=== PATIENT | female | born 1965 | race Caucasian/White ===

== ENCOUNTER 2016-09-04 21:07 | Emergency (ER) | payer MEDICAID | END 2016-09-04 21:45 | disposition left against medical advice (07) | LOC: CED 21:07 | DX: N93.9 Abnormal uterine and vaginal bleeding, unspecified (principal); Z53.8 Procedure and treatment not carried out for other reasons ==

== ENCOUNTER 2016-12-30 12:42 | Emergency (ER) | payer MEDICAID ==
[2016-12-30 12:53] VITALS: BP 120/75; PULSE 76; RESP 16; TEMP 99; O2SAT 94
--- NOTE | 2016-12-30 13:04 | EDPHY ---
H & P Stated Complaint: R upper eyelid redness and swelling intermittent x 6 weeks. Time Seen by Provider: 12/30/16 12:57 HPI/ROS: CHIEF COMPLAINT: Right eye swelling and pain. HISTORY OF PRESENT ILLNESS: The patient is a 51-year-old female presenting with right eye pain and swelling for the past 2 days with associated eye discharge today. The patient developed a stye to the upper right lid 4-6 weeks ago. The eye has since been intermittently swollen. Over the past 2 days the eye has remained swollen around the upper right lid. She denies recent sickness. No ear pain or sore throat. The patient wears contacts normally, she has not put her right lens. No change in vision. No eye pain, but some discomfort in the eyelid itself on the right. No foreign body sensation. No eye trauma. REVIEW OF SYSTEMS: A 10 point review of systems was performed and is negative with the exception of the elements mentioned in the history of present illness. Source: Patient Exam Limitations: No limitations - Personal History LMP (Females 10-55): 15-21 Days Ago Current Tetanus Diphtheria and Acellular Pertussis (TDAP): Yes Tetanus Vaccine Date: within 10 years - Medical/Surgical History Hx Asthma: No Hx Chronic Respiratory Disease: No Hx Diabetes: No Hx Cardiac Disease: No Hx Renal Disease: No Hx Cirrhosis: No Hx Alcoholism: No Hx HIV/AIDS: No Hx Splenectomy or Spleen Trauma: No Other PMH: parathyroidectomy, tubal ligation, pelvic floor surgery, dysbiosis - Social History Smoking Status: Never smoked Additional Social History: Daughter at bedside. 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 - Physical Exam Exam: General Appearance: Alert, no acute distress. Eyes: Pupils: equal round and reactive to light. EOMI. Lids: Erythema and edema to the right upper lid that extends to lateral canthus and medial canthus. Small palpable stye right upper mid lid. Skin: no proptosis, no periorbital erythema or swelling, no vesicles Conjunctivae: not injected, no discharge. ENT, Mouth: Mucous membranes are moist, no oropharyngeal erythema or edema. No mastoid tenderness, swelling or redness on right. Normal EACs and TMs bilaterally. Neck: No lymphadenopathy, supple. Respiratory: Lungs are clear to auscultation. Cardiovascular: Regular rate and rhythm. Skin: Warm and dry, no rashes, normal color. Neurological: Alert and oriented. Moving all four extremities easily and equally. Psychiatric: Normal affect. Constitutional: Initial Vital Signs Temperature (C) 37.2 C 12/30/16 12:47 Heart Rate 76 12/30/16 12:47 Respiratory Rate 16 12/30/16 12:47 Blood Pressure 120/75 12/30/16 12:47 O2 Sat (%) 94 12/30/16 12:47 O2 Delivery Mode Room Air Allergies/Adverse Reactions: hydromorphone HCl [From Dilaudid] Allergy (Severe, Verified 12/30/16 12:52) Itching morphine [Morphine] Allergy (Severe, Verified 12/30/16 12:52) Itching Home Medications: Medication Instructions Recorded NO HOME MEDS 12/15/09 Medical Decision Making ED Course/Re-evaluation: The patient presents with swelling and erythema to the right upper lid. On exam she has erythema and edema to the right upper lid that extends to lateral canthus and medial canthus, small palpable stye. This could possibly be a chalazion. I do not suspect conjunctivitis as the eye does not appear injected. Persistent blepharitis also a possiblility but this seems more localized and there is no crusting or conjunctival injection. No eye pain with EOMs. No photophobia. I do not suspect septal or preseptal cellulitis. She is not wearing make up on a regular basis, no new products that she might have applied around her eyes--I doubt contact dermatitis. I recommend ophthalmologic followup, which she agrees to arrange. Departure - Departure Disposition: Home, Routine, Self-Care Clinical Impression: Stye Qualifiers: Laterality: right Eyelid: upper Qualified Code(s): H00.011 - Hordeolum externum right upper eyelid Condition: Good Instructions: Stye (ED) Additional Instructions: Please schedule an appointment wiht your eye doctor. A persistent stye might need to be removed by your eye doctor. Referrals: Diana Alfaro MD [Primary Care Provider] - As per Instructions Report Scribed for: Yeimi Flannery Report Scribed by: Katherine Elmore Date of Report: 12/30/16 Time of Report: 13:01 Physician Review and Approval Statement: 12/30/16 13:02 Portions of this note were transcribed by the medical director. I, Dr. Yeimi Flannery, personally performed the history, physical exam, and medical decision- making; and confirmed the accuracy of the information in the transcribed note.
== END 2016-12-30 14:05 | disposition home or self-care (01) ==
LOC: CED 12:42
DX: H00.011 Hordeolum externum right upper eyelid (principal)